=== PATIENT | male | born 1940 | race Caucasian/White ===

== ENCOUNTER 2017-04-27 14:12 | Inpatient (IN) | payer MEDICARE ==
[2017-04-27 14:48] VITALS: BP 177/80
[2017-04-27] MEDS ORDERED: PREDNISONE20 MG (14:51)
[2017-04-27] MEDS ORDERED: VIBRAMYCIN 100100 MG (14:52)
[2017-04-27] MEDS ORDERED: HYDRALAZINE HCL25 MG PO (14:53)
[2017-04-27] MEDS ORDERED: OMEPRAZOLE20 M1 PO (14:54)
[2017-04-27] MEDS ORDERED: ARICEPT10 MG PO (14:55)
[2017-04-27] MEDS ORDERED: NAMENDA10 MG PO (14:56)
[2017-04-27] MEDS ORDERED: VERELAN180 MG PO (14:56)
[2017-04-27] MEDS ORDERED: NEURONTIN800 MG PO (14:57)
[2017-04-27 15:00] VITALS: BP 177/80; BMI 31.2
--- NOTE | 2017-04-27 15:00 | NUR ---
RECEIVED TO ROOM VIA WC FROM DR. RYAN'S OFFICE. AT BEDSIDE. A/O X3 WITH SOME CONFUSION NOTED AT TIMES. SKIN IS INTACT WITHOUT REDNESS.
[2017-04-27 15:35] LABS: BASOPHILS 0.2 % (0-2); EOSINOPHILS 0.3 % (0-7); HEMATOCRIT 42.5 % (42.0-54.0); HEMOGLOBIN 14.1 g/dL (13.5-17.5); IMMATURE GRANULOCYTES 0.7 % (0-5); LYMPHOCYTES 38.3 % (15-50); MCH 31.6 pg (26.0-34.0); MCHC 33.2 g/dL (31.0-37.0); MCV 95.3 fL (80.0-100.0); MEAN PLATELET VOLUME 8.8 fL (7.4-10.4); NEUTROPHILS 55.5 % (40-80); PLATELET COUNT 153 10x3/uL (130-400); RBC 4.46 10x6/uL (4.20-6.10); RDW 13.7 % (11.5-14.5)
--- NOTE | 2017-04-27 15:40 | NUR ---
PATIENT SITTING UP IN CHAIR. INFORMED PATIENT AND HE WOULD BE NPO AND NOT BE ABLE TO HAVE ANYTHING TO EAT OR DRINK UNTIL AFTER CT SCAN. STATES UNDERSTANDING.
[2017-04-27 15:48] LABS: ALBUMIN 4.3 g/dL (3.4-5.0); ANION GAP 12.6 mmol/L (8-16); BILIRUBIN - TOTAL 0.53 mg/dL (0.2-1.3); CALCIUM 9.2 mg/dL (8.5-10.1); CARBON DIOXIDE 29.4 mmol/L (21.0-32.0); CREATININE - SERUM 1.6 mg/dL (0.6-1.3); PROTEIN - SERUM 7.3 g/dL (6.4-8.2)
[2017-04-27 16:25] LABS: APPEARANCE CLEAR (CLEAR); COLOR DK YELLOW (YELLOW); NITRITE NEGATIVE (NEGATIVE); SPECIFIC GRAVITY 1.025 (1.005-1.020)
[2017-04-27 16:28] LABS: BILIRUBIN NEGATIVE (NEGATIVE); GLUCOSE NEGATIVE (NEGATIVE); KETONE NEGATIVE (NEGATIVE); PROTEIN 3+ mg/dL (NEGATIVE); UROBILINOGEN NORMAL (NORMAL)
[2017-04-27 16:32] LABS: BACTERIA FEW /hpf (NONE SEEN)
--- NOTE | 2017-04-27 16:45 | NUR ---
22 GAUGE IV SITED BY DANIEL MARTINEZ TO RIGHT FOREARM
--- NOTE | 2017-04-27 17:00 | NUR ---
SITTING UP IN CHAIR ALERT. NO SIGNS OF DISTRESS NOTED. IVF AND SCHEDULED IV ABX INTIATED. DENIES NEEDS. CALL LIGHT IN REACH. GUEST AT BEDSIDE.
--- NOTE | 2017-04-27 19:43 | NUR ---
ATTEMPTED TO CALL PEER EDUCATOR THREE TIMES TO NOTIFY THEM THAT A PAGE WAS PUT TO THE PROVIDER FOR NAUSEA/VOMITING. DR SIMON WAS PAGED BY THE CALL CENTER.
[2017-04-27] MEDS ORDERED: LASIX20 MG PO (20:01)
[2017-04-27] MEDS ORDERED: MYSOLINE 50 MG50 MG PO (20:02)
[2017-04-27] MEDS ORDERED: QUINIDINE SULF300 M2 PO (20:02)
[2017-04-28] VITALS (7 sets, daily range): BP systolic 67–181; BP diastolic 62–78; BMI 31.1
--- NOTE | 2017-04-28 00:26 | NUR ---
ASSESSED, PT IS AWAKE WATCHING TV WITH NO DISTRESS NOTED AND EASY RESPIRATIONS. HE HAS A URINAL AT THE BEDSIDE AND IS NOT WEARING O2. THE BED IS LOW, RAILS UP X'S 2 WITH THE CALL LIGHT AT HAND.
--- NOTE | 2017-04-28 07:15 | NUR ---
REPORT RECEIVED FROM INTERNATIONAL TRAVEL CONSULTANT NURSE. CALL LIGHT IN REACH.
--- NOTE | 2017-04-28 09:37 | NUR ---
BACK IN ROOM FROM RADIOLOGY VIA .
--- NOTE | 2017-04-28 10:27 | NUR ---
ASSESSMENT COMPLETED. AM MEDS ADMINISTERED. STOOL NOTED IN [place] HAT IN BR BUT PATIENT STATES IT IS FROM 0400 SO I DISCARDED IT. EXPLAINED TO PATIENT THAT HE NEEDS TO CALL RIGHT AFTER HE HAS BM SO THAT WE CAN COLLECT IT AND SEND TO THE LAB. ALSO INSTRUCTED HIM TO VOID IN THE URINAL TO MEASURE HIS URINE OUTPUT. IN ROOM. PASSWORD OBTAINDED. CALL LIGHT IN REACH. WILL CONTINUE WITH PLAN OF CARE.
--- NOTE | 2017-04-28 11:08 | NUR ---
STOOL SAMPLE COLLECTED AND SENT TO LAB.
[2017-04-28 13:02] LABS: BASOPHILS 0.2 % (0-2); EOSINOPHILS 0.4 % (0-7); HEMATOCRIT 40.6 % (42.0-54.0); HEMOGLOBIN 13.1 g/dL (13.5-17.5); IMMATURE GRANULOCYTES 0.8 % (0-5); LYMPHOCYTES 43.2 % (15-50); MCHC 32.3 g/dL (31.0-37.0); MEAN PLATELET VOLUME 8.5 fL (7.4-10.4); MONOCYTES 7.2 % (2-11); NEUTROPHILS 48.2 % (40-80); PLATELET COUNT 145 10x3/uL (130-400); RBC 4.23 10x6/uL (4.20-6.10); WBC 11.4 10x3/uL (4.8-10.8)
--- NOTE | 2017-04-28 13:15 | NUR ---
CARAFATE 1 GM PO PER ORDER.
[2017-04-28 13:22] LABS: ALBUMIN 3.8 g/dL (3.4-5.0); ANION GAP 11.7 mmol/L (8-16); BILIRUBIN - TOTAL 0.48 mg/dL (0.2-1.3); CALCIUM 8.2 mg/dL (8.5-10.1); CARBON DIOXIDE 27.9 mmol/L (21.0-32.0); CREATININE - SERUM 1.4 mg/dL (0.6-1.3); POTASSIUM - SERUM 3.6 mmol/L (3.5-5.1); PROTEIN - SERUM 6.1 g/dL (6.4-8.2)
--- NOTE | 2017-04-28 13:40 | NUR ---
PATIENT IN BED WITH NO COMPLAINTS AT THIS TIME. IV INTACT. CALL LIGHTW ITHIN REACH.
--- NOTE | 2017-04-28 14:28 | NUR ---
REQUESTED AND GIVEN 500MG TYLENOL PO FOR C/O HEADACHE. WILL MONITOR.
[2017-04-29 04:00] VITALS: BP 131/69
--- NOTE | 2017-04-29 07:05 | NUR ---
PATIENT IN BED WITH NO COMPLAINTS AT THIS TIME OR SIGNS OF DISTRESS. CALL LIGHT WITHIN REACH.
--- NOTE | 2017-04-29 07:15 | NUR ---
REPORT RECEIVED FROM TRANSPORTATION INSPECTOR NURSE. CALL LIGHTIN REACH.
--- NOTE | 2017-04-29 08:30 | NUR ---
ASSESSMENT COMPLETED. CALL LIGHT IN REACH. WILL CONTINUE WITH PLAN OF CARE.
[2017-04-29 09:48] VITALS: BP 156/58
--- NOTE | 2017-04-29 10:39 | NUR ---
AM MEDS ADMINISTERED. CALL LIGHT IN REACH.
[2017-04-29 12:05] VITALS: BP 131/73
--- NOTE | 2017-04-29 12:30 | NUR ---
NO NEEDS VOICED AT THIS TIME.
[2017-04-29] MEDS ORDERED: CARAFATE1 G/10 ML PO (13:14)
[2017-04-29] MEDS ORDERED: PROTONIX I40 MG/VIAL IV (13:14)
--- NOTE | 2017-04-29 13:55 | NUR ---
IV DC'D WITH TIP INTACT.
--- NOTE | 2017-04-29 15:47 | NUR ---
DC'D TO VEHICLE VIA WC WITH .
--- NOTE | 2017-05-14 15:54 | DS ---
PATIENT:LANDRY GARCIA :36 MEDICAL RECORD: [id number] DISCHARGE SUMMARY ADMISSION DATE: 04/27/17 DISCHARGE DATE: 04/29/17 DATE OF ADMISSION: 04/27/2017. DATE OF DISCHARGE: 04/29/2017. DISCHARGE DIAGNOSES: 1. Abdominal pain. 2. Nausea and vomiting, resolved. 3. Diarrhea, resolved. 4. Leukocytosis. CONSULTS: Dr. Dai. IMAGING STUDIES: 1. CT of the abdomen and pelvis that showed no acute inflammatory or infectious process in the abdomen. He had a normal appendix. 2. Upper GI with small bowel follow through showed a small hiatal hernia, otherwise unremarkable. HOSPITAL COURSE: The full H&P is listed elsewhere on the chart for this 76-year-old patient who presented with abdominal pain, nausea, vomiting and some diarrhea. He was admitted to the inpatient setting, started on PPI, antiemetics, and IV fluids. A GI consult was obtained. He underwent a small bowel follow-through and a CT of the abdomen and pelvis, both of which were unremarkable for any acute pathology. He was started on Carafate a.c. and h.s. and his diet was slowly advanced. His clinical condition improved. He was thought to be stable and was discharged to home to follow up in the outpatient setting. See med rec. TRANSINT:[id number] Voice Confirmation ID: [id number] DOCUMENT ID: [id number] Dictated By: STACIE KEYS I have interviewed/examined the above patient and agree with these documented findings. CARLOS SIMON MD at 1110 at 1553 CC: [id number] DICTATION DATE: 05/09/17 0855 BREAKFAST HOSTESS: 05/09/17 1321 DIS IN 04/29/17 [facility] [address] [place] [address]
== END 2017-04-29 15:47 | disposition home or self-care (01) | DRG 392 ==
LOC: D.OPS 14:12 → D.MS 14:13
PROVIDERS: Family Medicine; ADMIT Emergency Medicine
DX: R10.9 Unspecified abdominal pain (principal); C85.90 Non-Hodgkin lymphoma, unspecified, unspecified site; R19.7 Diarrhea, unspecified; R11.2 Nausea with vomiting, unspecified; F03.90 Unspecified dementia, unspecified severity, without behavioral disturbance, psychotic disturbance, mood disturbance, and anxiety; I25.10 Atherosclerotic heart disease of native coronary artery without angina pectoris; E78.5 Hyperlipidemia, unspecified; I12.9 Hypertensive chronic kidney disease with stage 1 through stage 4 chronic kidney disease, or unspecified chronic kidney disease; N18.9 Chronic kidney disease, unspecified

== ENCOUNTER 2018-03-04 12:05 | Observation (INO) | payer MEDICARE ==
[~2018-03-04] VITALS: Ht 172.7 cm; Wt 73.8 kg
[~2018-03-04 12:05] MED LIST: ARICEPT10 MG PO; CARAFATE1 G/10 ML PO; HYDRALAZINE HCL25 MG PO; LASIX20 MG PO; MYSOLINE 50 MG50 MG PO; NAMENDA10 MG PO; NEURONTIN800 MG PO; OMEPRAZOLE20 M1 PO; PREDNISONE20 MG; PROTONIX I40 MG/VIAL IV; QUINIDINE SULF300 M2 PO; VERELAN180 MG PO; VIBRAMYCIN 100100 MG
[2018-03-04] MEDS ORDERED: BAYER CHEWABLE81 MG PO (12:26)
[2018-03-04] MEDS ORDERED: TEMAZEPAM30 MG PO (12:29)
[2018-03-04 13:01] VITALS: BP 139/88
[2018-03-04 13:06] LABS: BASOPHILS 0.2 % (0-2); EOSINOPHILS 0.2 % (0-7); HEMATOCRIT 41.2 % (42.0-54.0); HEMOGLOBIN 13.4 g/dL (13.5-17.5); IMMATURE GRANULOCYTES 0.4 % (0-5); LYMPHOCYTES 26.7 % (15-50); MCH 30.4 pg (26.0-34.0); MCHC 32.5 g/dL (31.0-37.0); MCV 93.4 fL (80.0-100.0); MEAN PLATELET VOLUME 8.5 fL (7.4-10.4); MONOCYTES 8.1 % (2-11); NEUTROPHILS 64.4 % (40-80); RBC 4.41 10x6/uL (4.20-6.10); RDW 15.6 % (11.5-14.5); WBC 15.1 10x3/uL (4.8-10.8)
[2018-03-04 13:09] LABS: APPEARANCE CLEAR (CLEAR); BILIRUBIN NEGATIVE (NEGATIVE); COLOR DK YELLOW (YELLOW); GLUCOSE NEGATIVE (NEGATIVE); KETONE NEGATIVE (NEGATIVE); NITRITE NEGATIVE (NEGATIVE); PROTEIN TRACE mg/dL (NEGATIVE); UROBILINOGEN NORMAL (NORMAL)
[2018-03-04 13:10] LABS: BACTERIA FEW /hpf (NONE SEEN); EPITHELIAL CELLS 0-5 /hpf (0-5); MUCUS <1+ /lpf (NONE SEEN); RED CELLS - URINE 0-5 /hpf (0-5); WHITE CELLS - URINE OCC /hpf (0-5)
[2018-03-04 13:15] LABS: PLATELET COUNT 107 10x3/uL (130-400)
[2018-03-04 13:25] LABS: ALBUMIN 3.6 g/dL (3.4-5.0); ANION GAP 11.5 mmol/L (8-16); BILIRUBIN - TOTAL 0.69 mg/dL (0.2-1.3); CALCIUM 8.3 mg/dL (8.5-10.1); CARBON DIOXIDE 28.9 mmol/L (21.0-32.0); CREATININE - SERUM 1.6 mg/dL (0.6-1.3); POTASSIUM - SERUM 4.4 mmol/L (3.5-5.1); PROTEIN - SERUM 6.3 g/dL (6.4-8.2)
[2018-03-04 14:01] VITALS: BP 132/93
[2018-03-04 15:00] VITALS: BP 124/81
[2018-03-04 16:00] VITALS: BP 141/80
[2018-03-04 16:35] LABS: CKMB 2.6 U/L (0.0-3.6); CREATINE KINASE 513 UL (21-232); TROPONIN-I 0.017 ng/mL (0.000-0.060)
[2018-03-04 20:36] VITALS: BP 122/62
[2018-03-05 03:20] VITALS: BP 148/55; BMI 30.1
[2018-03-05 04:59] VITALS: BP 144/74
[2018-03-05 08:27] VITALS: BP 141/86
[2018-03-05 10:00] VITALS: BMI 30.1
[2018-03-05 12:02] VITALS: BP 128/74
[2018-03-05 15:34] VITALS: Ht 172.7 cm; Wt 73.8 kg
[2018-03-05 15:56] VITALS: BP 125/73
[2018-03-05 20:15] VITALS: BP 149/73
[2018-03-06 05:28] VITALS: BP 128/71
[2018-03-06 09:12] VITALS: BP 132/81
[2018-03-06 09:44] LABS: BASOPHILS 0.2 % (0-2); EOSINOPHILS 1.4 % (0-7); HEMATOCRIT 40.2 % (42.0-54.0); IMMATURE GRANULOCYTES 0.5 % (0-5); LYMPHOCYTES 47.4 % (15-50); MCH 30.3 pg (26.0-34.0); MCHC 32.3 g/dL (31.0-37.0); MCV 93.7 fL (80.0-100.0); MEAN PLATELET VOLUME 8.8 fL (7.4-10.4); MONOCYTES 4.7 % (2-11); NEUTROPHILS 45.8 % (40-80); PLATELET COUNT 117 10x3/uL (130-400); RBC 4.29 10x6/uL (4.20-6.10); RDW 15.8 % (11.5-14.5)
[2018-03-06 09:59] LABS: ANION GAP 10.9 mmol/L (8-16); CALCIUM 8.2 mg/dL (8.5-10.1); CARBON DIOXIDE 27.6 mmol/L (21.0-32.0); CREATININE - SERUM 1.4 mg/dL (0.6-1.3)
[2018-03-06 10:00] LABS: POTASSIUM - SERUM 3.5 mmol/L (3.5-5.1)
[2018-03-06 12:08] VITALS: BP 142/77
[2018-03-06] MEDS ORDERED: NEURONTIN 300300 MG PO (14:32)
[2018-03-06] MEDS ORDERED: VERELAN180 MG PO (14:34)
[2018-03-06] MEDS ORDERED: MYSOLINE 50 MG50 MG PO (14:36)
[2018-03-06 16:05] VITALS: BP 119/63
[2018-03-06 20:39] VITALS: BP 128/77
[2018-03-07] VITALS: BP 145/79
[2018-03-07 04:00] VITALS: BP 152/77
[2018-03-07 06:03] LABS: ANION GAP 9.7 mmol/L (8-16); CALCIUM 7.8 mg/dL (8.5-10.1); CARBON DIOXIDE 27.9 mmol/L (21.0-32.0); CREATININE - SERUM 1.2 mg/dL (0.6-1.3); POTASSIUM - SERUM 3.6 mmol/L (3.5-5.1)
[2018-03-07 06:09] LABS: HEMATOCRIT 35.6 % (42.0-54.0); HEMOGLOBIN 11.6 g/dL (13.5-17.5); MCH 30.5 pg (26.0-34.0); MCHC 32.6 g/dL (31.0-37.0); MCV 93.7 fL (80.0-100.0); MEAN PLATELET VOLUME 8.6 fL (7.4-10.4); PLATELET COUNT 116 10x3/uL (130-400); RDW 15.6 % (11.5-14.5); WBC 10.1 10x3/uL (4.8-10.8)
[2018-03-07 07:08] LABS: LYMPHOCYTES 53 % (15-50); MONOCYTES 7 % (2-11); NEUTROPHILS 38 % (40-80); PLATELET ESTIMATE DECREASED
[2018-03-07 07:09] LABS: ANISOCYTOSIS OCC; HYPOCHROMASIA OCC
[2018-03-07 08:36] VITALS: BP 136/84
[2018-03-07 12:33] VITALS: BP 124/73
== END 2018-03-07 15:32 | disposition home or self-care (01) ==
LOC: D.ER 12:05 → D.EDHOLD 15:16 → D.M2 15:16 → D.EDHOLD 15:16 → OBSVTIME 15:17 → D.M2 17:46
PROVIDERS: Family Medicine; Internal Medicine Nephrology
DX: R53.1 Weakness (principal); I10 Essential (primary) hypertension; K21.9 Gastro-esophageal reflux disease without esophagitis; I12.9 Hypertensive chronic kidney disease with stage 1 through stage 4 chronic kidney disease, or unspecified chronic kidney disease; N18.3 Chronic kidney disease, stage 3 (moderate); D64.9 Anemia, unspecified; D69.6 Thrombocytopenia, unspecified; F03.90 Unspecified dementia, unspecified severity, without behavioral disturbance, psychotic disturbance, mood disturbance, and anxiety; Z91.81 History of falling

== ENCOUNTER 2018-07-26 19:05 | Inpatient (IN) | payer MEDICARE ==
[~2018-07-26] VITALS: Ht 172.7 cm; Wt 95.3 kg
[~2018-07-26 19:05] MED LIST changes: +BAYER CHEWABLE81 MG PO; +NEURONTIN 300300 MG PO; +TEMAZEPAM30 MG PO
[2018-07-26 19:33] LABS: BASOPHILS 0.4 % (0-2); EOSINOPHILS 0.5 % (0-7); HEMATOCRIT 39.9 % (42.0-54.0); HEMOGLOBIN 13.1 g/dL (13.5-17.5); IMMATURE GRANULOCYTES 0.3 % (0-5); LYMPHOCYTES 38.6 % (15-50); MCHC 32.8 g/dL (31.0-37.0); MCV 94.5 fL (80.0-100.0); MEAN PLATELET VOLUME 8.5 fL (7.4-10.4); MONOCYTES 9.5 % (2-11); NEUTROPHILS 50.7 % (40-80); PLATELET COUNT 133 10x3/uL (130-400); RBC 4.22 10x6/uL (4.20-6.10); RDW 14.3 % (11.5-14.5); WBC 11.7 10x3/uL (4.8-10.8)
[2018-07-26 19:54] LABS: INR 1.13 (0.85-1.17)
[2018-07-26 19:55] LABS: ALBUMIN 3.5 g/dL (3.4-5.0); ALKALINE PHOSPHATASE 130 U/L (46-116); ALT (SGPT) 32 U/L (10-68); BILIRUBIN - TOTAL 0.36 mg/dL (0.2-1.3); CALC OSMOLALITY 282 mosm/kg (275-300); CARBON DIOXIDE 25.5 mmol/L (21.0-32.0); CHLORIDE - SERUM 103 mmol/L (98-107); CREATININE - SERUM 1.4 mg/dL (0.6-1.3); GLUCOSE 126 mg/dL (74-106); POTASSIUM - SERUM 3.9 mmol/L (3.5-5.1); PROTEIN - SERUM 6.6 g/dL (6.4-8.2); SODIUM 141 mmol/L (136-145); UREA NITROGEN 13 mg/dL (7-18); eGFR NON AFRICAN AMERICAN 52 mL/min (90-120)
[2018-07-26 20:07] LABS: CKMB 0.8 U/L (0.0-3.6); CREATINE KINASE 62 UL (21-232); PHENYTOIN (DILANTIN) 6.8 ug/mL (10.0-20.0); THYROID STIMULATING HORMONE 3.03 uIU/mL (0.36-3.74); TROPONIN-I < 0.017 ng/mL (0.000-0.060)
[2018-07-26 22:13] LABS: APPEARANCE CLEAR (CLEAR); BILIRUBIN NEGATIVE (NEGATIVE); COLOR YELLOW (YELLOW); GLUCOSE NEGATIVE (NEGATIVE); KETONE NEGATIVE (NEGATIVE); NITRITE NEGATIVE (NEGATIVE); PROTEIN TRACE mg/dL (NEGATIVE); SPECIFIC GRAVITY 1.025 (1.005-1.020); UROBILINOGEN NORMAL (NORMAL)
[2018-07-26 22:14] LABS: EPITHELIAL CELLS 0-5 /hpf (0-5); RED CELLS - URINE 0-5 /hpf (0-5)
[2018-07-26 22:15] LABS: BACTERIA MANY /hpf (NONE SEEN); MUCUS <1+ /lpf (NONE SEEN)
[2018-07-26 22:20] LABS: UDS - AMPHET NEGATIVE QUAL (NEGATIVE); UDS - BARB POSITIVE QUAL (NEGATIVE); UDS - BENZO NEGATIVE QUAL (NEGATIVE); UDS - COCAINE NEGATIVE QUAL (NEGATIVE); UDS - OPIATE NEGATIVE QUAL (NEGATIVE); UDS - PCP NEGATIVE QUAL (NEGATIVE); UDS - THC NEGATIVE QUAL (NEGATIVE)
--- NOTE | 2018-07-26 22:47 | NUR ---
PT GIVEN BLANKET
--- NOTE | 2018-07-26 23:14 | NUR ---
PT'S SPOUSE, NERY GARCIA LEFT CONTACT INFO, . SHE REQUEST NURSE TO CALL HER WHEN PT RECEIVES A ROOM NUMBER.
--- NOTE | 2018-07-27 01:16 | NUR ---
PT'S SPOUSE CONTACTED AND INFORMED OF PT'S ROOM NUMBER.
--- NOTE | 2018-07-27 03:14 | NUR ---
RECEIVED PT FROM ER STAFF VIA STRETCHER. PT IS ALERT AND VERY CONFUSE. PT HAS DEMENTIA. PT IS ON A BED ALARM. BED IS IN THE LOWEST POSITION WITH CALL LIGHT IN REACH. SIDE RAILS UP X 2. WILL CONTINUE TO MONITOR PT AND FOLLOW PLAN OF CARE.
[2018-07-27 04:39] VITALS: BP 189/95; BMI 32.0
--- NOTE | 2018-07-27 04:41 | NUR ---
RN NOTE - PT RESTING IN BED WITH EYES CLOSED. NO S/S OF DISTRESS, RR EVEN AND UL. BED ALARM ON AND FUNCTIONING PROPERLY. CL IN REACH, SR UP X2, BED IN LOWEST POSITION.
--- NOTE | 2018-07-27 04:52 | NUR ---
RN ASSESSMENTS COMPLETED. ALERT/AWAKE ORIENTED TO NAME ONLY. DOOR LEFT OPEN TO MONITOR CLOSELY. ORIENTED TO CALL LIGHT FOR ANY NEEDS.
[2018-07-27 05:17] LABS: BASOPHILS 0.4 % (0-2); EOSINOPHILS 0.4 % (0-7); HEMATOCRIT 37.2 % (42.0-54.0); IMMATURE GRANULOCYTES 0.3 % (0-5); LYMPHOCYTES 50.3 % (15-50); MCH 30.6 pg (26.0-34.0); MCHC 32.3 g/dL (31.0-37.0); MCV 94.9 fL (80.0-100.0); MEAN PLATELET VOLUME 8.4 fL (7.4-10.4); MONOCYTES 7.7 % (2-11); NEUTROPHILS 40.9 % (40-80); PLATELET COUNT 112 10x3/uL (130-400); RBC 3.92 10x6/uL (4.20-6.10); RDW 14.2 % (11.5-14.5); WBC 11.5 10x3/uL (4.8-10.8)
[2018-07-27 05:45] LABS: ANION GAP 15.9 mmol/L (8-16); CALCIUM 8.3 mg/dL (8.5-10.1); CARBON DIOXIDE 23.8 mmol/L (21.0-32.0); CREATININE - SERUM 1.3 mg/dL (0.6-1.3); POTASSIUM - SERUM 3.7 mmol/L (3.5-5.1)
--- NOTE | 2018-07-27 07:15 | NUR ---
RECEIVED REPORT. PATIENT SITTING IN BED, CONTINUES TO GET OOB. PATIENT HAS NO IV ACCESS AT THIS TIME HE HAS RIPPED IT OUT. CALL LIGHT WITHIN REACH. NO DISTRESS.
[2018-07-27 09:01] VITALS: BP 173/89
[2018-07-27 10:26] VITALS: BMI 31.9
--- NOTE | 2018-07-27 11:30 | NUR ---
SPOKE TO PATIENTS AT 1035 TO GIVE HER THE UPDATE THAT SHE REQUESTED. SHE STATES THAT SHE WATCHES HIM DURING THE DAY BECAUSE HE HAS ALZEHIMERS DISEASE. REQUESTED THAT FAMILY COME AND SIT WITH PATIENT WE CAN NOT KEEP HIM IN HIS ROOM, KEEP AN IV IN HIM. SHE STATED SHE WOULD BE UP ABOUT 1130 AND ALSO REQUESTED IF SHE COULD BRING HIM BACK HOME. SPOKE WITH TERRY ARMENDARIZ AND SHE IS REVIEWING PATIENTS CHART.
[2018-07-27 12:50] VITALS: Ht 172.7 cm; Wt 95.3 kg
--- NOTE | 2018-07-27 12:59 | NUR ---
PATIENTS AT BEDSIDE AND CAN'T KEEP HIM IN THE BED. SHE SAYS HE WILL NOT STAY. ASSISTED PATIENT BACK TO BED.
--- NOTE | 2018-07-27 13:23 | NUR ---
PATIENT CONTINUES TO GET OOB WITH FAMILY AT BEDSIDE. ASSISTED PATIENT BACK TO BED MULTIPLE TIMES. NO DISTRESS.
[2018-07-27 14:03] VITALS: BP 153/75
[2018-07-27] MEDS ORDERED: LEVOFLOXACIN500 MG PO (14:23)
[2018-07-27] MEDS ORDERED: FLOMAX0.4 MG PO (14:25)
--- NOTE | 2018-07-27 16:12 | NUR ---
1530 DISCHARGE INSTRUCTIONS PROVIDED TO PATIENT AND HIS FAMILY. FAMILY VERBALIZED UNDERSTANDING OF ALL INSTRUCTIONS PROVIDED. 1535 PATIENT LEFT VIA WHEELCHAIR. PATIENT DISCHARGED TO HOME WITH FAMILY. PATIENT LEFT UNIT WITH ALL PERSONAL BELONGINGS. NO DISTRESS UPON LEAVING UNIT.
--- NOTE | 2018-07-29 08:57 | MORECARE ---
CASE MANAGEMENT DISCHARGE SUMMARY PATIENT: LANDRY GARCIA UNIT: [id number] ADM DATE: 07/26/18 AGE: 78 : 36 SEX: M ROOM/BED: D.2103 AUTHOR: DARRICK GUTHRIE PHYSICIAN: REFERRING PHYSICIAN: NEERAJ SHAFFER MD DATE OF SERVICE: 07/29/18 Discharge Plan Patient Name: LANDRY [facility]ARCIA [facility] [facility] 1940 Planned Disposition: Home Anticipated Discharge Date: 07/27/18 Discharge Date: 07/27/2018 Expected LOS: 1 Initial Reviewer: [email or web address] Initial Review Date: 07/29/2018 Generated: 07/29/18 9:57 am Patient Name: LANDRY GARCIA Page [id number] at 0857 All edits/amendments must be made on the electronic document DICTATION DATE: 07/29/18 0857 WRITER TECHNICAL PUBLICATIONS: HARSHIL 07/29/18 0857 RPT#: [id number] DC DATE:07/27/18 STATUS: DIS IN [facility] [address] [place] [address] END OF REPORT
== END 2018-07-27 15:35 | disposition home or self-care (01) | DRG 689 ==
LOC: D.ER 19:05 → D.M2 23:56 → D.EDHOLD 23:56 → D.M2 07-27 00:20
PROVIDERS: Family Medicine; ADMIT Internal Medicine Nephrology
DX: N39.0 Urinary tract infection, site not specified (principal); G93.41 Metabolic encephalopathy; C85.90 Non-Hodgkin lymphoma, unspecified, unspecified site; F03.90 Unspecified dementia, unspecified severity, without behavioral disturbance, psychotic disturbance, mood disturbance, and anxiety; Z86.73 Personal history of transient ischemic attack (TIA), and cerebral infarction without residual deficits; G40.909 Epilepsy, unspecified, not intractable, without status epilepticus; I12.9 Hypertensive chronic kidney disease with stage 1 through stage 4 chronic kidney disease, or unspecified chronic kidney disease; N18.9 Chronic kidney disease, unspecified; Z91.81 History of falling

== ENCOUNTER 2018-11-15 18:12 | Emergency (ER) | payer MEDICARE ==
[~2018-11-15] VITALS: Ht 172.7 cm; Wt 81.8 kg
[~2018-11-15 18:12] MED LIST changes: +FLOMAX0.4 MG PO; +LEVOFLOXACIN500 MG PO
[2018-11-15 18:23] VITALS: Ht 172.7 cm; Wt 81.8 kg
[2018-11-15 19:55] VITALS: BP 171/88
== END 2018-11-15 19:55 | disposition home or self-care (01) ==
LOC: D.ER 18:12
DX: Z91.81 History of falling (principal)